=== PATIENT | female | born 1990 | race Caucasian/White ===

== ENCOUNTER 2022-07-19 08:46 | Emergency (ER) | payer OTHER ==
[2022-07-19 09:00] VITALS: BP 104/71; PULSE 115; RESP 18; TEMP 98.9; BMI 26.6
[2022-07-19] MEDS ORDERED: predniSONE 20 MG TABLET (UD) PO ONE (09:20)
[2022-07-19] MEDS ORDERED: diphenhydrAMINE HCL 25 MG CAPSULE (FP) PO ONE ×2 (09:20→09:24)
[2022-07-19] MEDS ORDERED: FAMOTIDINE 20 MG TABLET PO ONE (09:22)
[2022-07-19] MEDS ORDERED: FAMOTIDINE 20 MG TABLET ONE (09:24)
[2022-07-19] MEDS ORDERED: predniSONE 20 MG TABLET (UD) ONE (09:24)
[2022-07-19 11:52] LABS: THROAT:GRP A STREP DETECTED (NOTDETECTED)
== END 2022-07-19 11:15 | disposition home or self-care (01) ==
LOC: FER 08:46
DX: R21 Rash and other nonspecific skin eruption (principal); T78.40XA Allergy, unspecified, initial encounter; J02.0 Streptococcal pharyngitis; Z20.822 Contact with and (suspected) exposure to COVID-19
CPT/HCPCS: 0241U-QW; 87651; 99283-25

== ENCOUNTER 2022-12-08 14:03 | Emergency (ER) | payer OTHER ==
[2022-12-08 14:29] VITALS: BP 127/76; PULSE 87; RESP 18; TEMP 98.4; BMI 28.3
== END 2022-12-08 15:15 | disposition home or self-care (01) ==
LOC: FER 14:03
PROC: 3E0T3BZ Introduction of Anesthetic Agent into Peripheral Nerves and Plexi, Percutaneous Approach (ICD-10-PCS; principal; 2022-12-08)
DX: K08.89 Other specified disorders of teeth and supporting structures (principal)
CPT/HCPCS: 99282-25

== ENCOUNTER 2023-02-13 17:02 | Emergency (ER) | payer OTHER ==
[2023-02-13 17:13] VITALS: BP 111/65; PULSE 95; RESP 16; TEMP 97.4; BMI 30.2
== END 2023-02-13 18:46 | disposition home or self-care (01) ==
LOC: FER 17:02
DX: H92.03 Otalgia, bilateral (principal); R09.81 Nasal congestion; R05.9 Cough, unspecified
CPT/HCPCS: 99282-25

== ENCOUNTER 2023-12-17 22:12 | Emergency (ER) | payer OTHER ==
[2023-12-17 22:21] VITALS: BP 112/72; PULSE 78; RESP 16; TEMP 97.5; BMI 29.5
[2023-12-17] MEDS ORDERED: ONDANSETRON 4 MG/2 ML VIAL ONE (22:42)
[2023-12-17 22:46] LABS: HEMATOCRIT 39.7 % (32.4-45.2); HEMOGLOBIN 12.6 G/dL (10.7-15.3); MCH 28.5 pg (25.7-33.7); MCHC 31.8 g/dl (32.0-36.0); MEAN CELL VOLUME 89.6 fl (80-96); MEAN PLT VOLUME 7.9 fl (7.5-11.1); PLATELET COUNT 278.1 10^3/uL (134-434); RBC 4.43 10^6/uL (3.60-5.2); RDW 13.8 % (11.6-15.6); WHITE BLOOD COUNT 8.8 10^3/uL (4.0-10.8)
[2023-12-17] MEDS: SODIUM CHLORIDE 1,000 ML IV ONE (22:47)
[2023-12-17] MEDS: ONDANSETRON 4 MG/2 ML VIAL IVPUSH ONE (22:47)
[2023-12-17 23:11] LABS: ALBUMIN 4.6 g/dl (3.4-5.0); BILIRUBIN,TOTAL 0.4 mg/dl (0.2-1); CALCIUM 10.1 mg/dl (8.5-10.1); CREATININE 0.9 mg/dl (0.6-1.3); POTASSIUM 3.8 mmol/L (3.5-5.1); TOT PROT 7.7 g/dl (6.4-8.2)
[2023-12-17] MEDS ORDERED: MAGNESIUM CITRATE 300 ML BOTTLE ONE (23:18)
[2023-12-17] MEDS: MAGNESIUM CITRATE 300 ML BOTTLE PO ONE (23:27)
== END 2023-12-17 23:36 | disposition home or self-care (01) ==
LOC: FER 22:12
PROC: 3E033GC Introduction of Other Therapeutic Substance into Peripheral Vein, Percutaneous Approach (ICD-10-PCS; principal; 2023-12-17)
PROC: 3E0337Z Introduction of Electrolytic and Water Balance Substance into Peripheral Vein, Percutaneous Approach (ICD-10-PCS; 2023-12-17)
DX: K59.00 Constipation, unspecified (principal); R10.33 Periumbilical pain; R11.2 Nausea with vomiting, unspecified
CPT/HCPCS: 36415; 74019-TC-FY; 80053; 81003; 81015; 83690; 85027; 99284-25

== ENCOUNTER 2023-12-18 19:00 | Emergency (ER) | payer OTHER ==
[2023-12-18 19:30] VITALS: BMI 29.5
[2023-12-18] MEDS ORDERED: ACETAMINOPHEN INJECTION 100 ML ONE (19:36)
[2023-12-18] MEDS ORDERED: ONDANSETRON 4 MG/2 ML VIAL ONE (19:36)
[2023-12-18] MEDS: SODIUM CHLORIDE 0.9% 500 ML INFUS.BAG IV ONE (19:56)
[2023-12-18] MEDS: ONDANSETRON 4 MG/2 ML VIAL IVPUSH ONE (19:56)
[2023-12-18] MEDS: ACETAMINOPHEN 1000 MG/100 ML BAG IVPB ONE (19:56)
[2023-12-18 20:01] LABS: BASO % 0.6 % (0-2.0); EOS % 0.4 % (0-4.5); HEMOGLOBIN 13.2 GM/dL (10.7-15.3); LYMPH % 17.7 % (8-40); MCH 29.6 pg (25.7-33.7); MCHC 33.9 g/dl (32.0-36.0); MEAN CELL VOLUME 87.5 fl (80-96); MEAN PLT VOLUME 7.5 fl (7.5-11.1); MONO % 5.7 % (3.8-10.2); NEUT % 75.6 % (42.8-82.8); PLATELET COUNT 326 10^3/uL (134-434); RBC 4.45 M/mm3 (3.60-5.2); RDW 14.4 % (11.6-15.6); WHITE BLOOD COUNT 11.8 K/mm3 (4.0-10.0)
[2023-12-18 20:23] LABS: POTASSIUM 3.8 mmol/L (3.5-5.1)
[2023-12-18 20:25] LABS: CALCIUM 10.3 mg/dL (8.5-10.1)
[2023-12-18 20:26] LABS: ALBUMIN 4.6 g/dl (3.4-5.0); BLOOD UREA NITROGEN 16.8 mg/dL (7-18)
[2023-12-18 20:31] LABS: BILIRUBIN,TOTAL 0.7 mg/dL (0.2-1); TOT PROT 8.6 g/dl (6.4-8.2)
[2023-12-18 21:13] LABS: EPI CELLS >36 /uL (0-25.1); HYALINE CASTS 0 /uL (0-3.1); PH,URINE 8.5 (5.0-8.0); URINE APPEARANCE CLEAR; URINE BACTERIA 560 /uL (0-1359); URINE BILIRUBIN NEGATIVE (NEGATIVE); URINE COLOR YELLOW; URINE GLUCOSE (UA) NEGATIVE (NEGATIVE); URINE KETONE 2+ (NEGATIVE); URINE LEUK ESTERASE NEGATIVE (NEGATIVE); URINE NITRITE NEGATIVE (NEGATIVE); URINE PROTEIN NEGATIVE (NEGATIVE); URINE RBC 12 /uL (0-23.9); URINE UROBILINOGEN 0.2 mg/dL (0.2-1.0); URINE WBC 14 /uL (0-25.8)
[2023-12-18] MEDS ORDERED: KETOROLAC TROMETHAMINE 15 MG/ML VIAL ONE (22:52)
[2023-12-18] MEDS: KETOROLAC TROMETHAMINE 15 MG/ML VIAL IVPUSH ONE (23:25)
[2023-12-18 23:40] VITALS: BP 100/61; PULSE 71; RESP 16; TEMP 98.5
== END 2023-12-18 23:40 | disposition home or self-care (01) ==
LOC: JER 19:00
PROC: 3E033NZ Introduction of Analgesics, Hypnotics, Sedatives into Peripheral Vein, Percutaneous Approach (ICD-10-PCS; principal; 2023-12-18)
PROC: 3E0333Z Introduction of Anti-inflammatory into Peripheral Vein, Percutaneous Approach (ICD-10-PCS; 2023-12-18)
PROC: 3E033GC Introduction of Other Therapeutic Substance into Peripheral Vein, Percutaneous Approach (ICD-10-PCS; 2023-12-18)
DX: R10.84 Generalized abdominal pain (principal); R11.2 Nausea with vomiting, unspecified; R68.83 Chills (without fever); N83.209 Unspecified ovarian cyst, unspecified side
CPT/HCPCS: 36415; 74177-TC; 80053; 81003; 83690; 84703; 85025; 87077; 87086; 99285-25; J0131; Q9967

== ENCOUNTER 2023-12-20 16:46 | Emergency (ER) | payer OTHER ==
[2023-12-20 17:01] VITALS: BP 118/68; PULSE 89; RESP 18; TEMP 97.5; BMI 29.5
== END 2023-12-20 17:09 | disposition home or self-care (01) ==
LOC: FER 16:46
DX: U07.1 COVID-19 (principal); R50.9 Fever, unspecified; M79.10 Myalgia, unspecified site; J02.9 Acute pharyngitis, unspecified
CPT/HCPCS: 0241U-QW; 99283-25

== ENCOUNTER 2024-11-18 21:54 | Observation (INO) | payer OTHER ==
[2024-11-18] MEDS ORDERED: ONDANSETRON 4 MG/2 ML VIAL ONE (22:58)
[2024-11-18] MEDS: ONDANSETRON 4 MG/2 ML VIAL IVPB ONE (23:04)
[2024-11-18] MEDS: morphine CARPU-JECT 2 MG/1 ML DISP.SYRIN IVPUSH ONE (23:05)
[2024-11-18] MEDS: SODIUM CHLORIDE 1,000 ML IV ONE (23:06)
[2024-11-18 23:11] LABS: ABSOLUTE IMMATURE GRANULOCYTES 0.00 x10^3/uL (0.0-0.031); BASOPHILS # 0.02 x10^3/uL (0.01-0.08); EOSINOPHIL % 1.4 % (0.7-5.8); EOSINOPHILS # 0.10 x10^3/uL (0.04-0.36); MCHC 33.1 g/dl (32.2-35.5); MEAN CELL VOLUME 92.9 fl (79.4-94.8); MEAN PLT VOLUME 9.5 fl (9.4-12.3); MONOCYTE # 0.57 x10^3/uL (0.24-0.86); MONOCYTE % 8.1 % (4.7-12.5); RDW 13.1 % (12.1-16.8)
[2024-11-18 23:18] LABS: HCG,QUALITATIVE URINE Negative
[2024-11-18 23:29] LABS: ALK PHOS 44.0 U/L (45-117); CO2 25.0 mmol/L (21-32); CREATININE 0.7 mg/dl (0.6-1.3); GLUCOSE,RANDOM 87.0 mg/dl (74-106); SGOT/AST 14.0 U/L (15-37); SGPT/ALT 12.0 U/L (7-52); TOT PROT 7.1 g/dl (6.4-8.2)
[2024-11-19] MEDS: morphine CARPU-JECT 2 MG/1 ML DISP.SYRIN IVPUSH ONE ×2 (01:22→06:35)
[2024-11-19 07:04] VITALS: TEMP 98.2
[2024-11-19 09:07] VITALS: BMI 30.2
[2024-11-19] MEDS ORDERED: METOCLOPRAMIDE HCL INJECTION 10 MG/2 ML VIAL IVPUSH PRN (10:08)
[2024-11-19] MEDS ORDERED: ACETAMINOPHEN 1000 MG/100 ML BAG IVPB PRN (10:08)
[2024-11-19] MEDS: DOCUSATE SODIUM 100 MG CAPSULE (FP) PO SCH (10:45)
[2024-11-19] MEDS: POLYETHYLENE GLYCOL (HEALTHYLAX) 3350 17 GM PACKET PO SCH (10:45)
[2024-11-19 12:58] LABS: HCV DIAGNOSTIC IN-HOUSE W/RFLX NON-REACTIVE (NONREACTIVE); HIV INTERPRETATION NEGATIVE (NEGATIVE)
[2024-11-19 14:33] VITALS: BP 109/79; PULSE 74; RESP 18
== END 2024-11-19 16:22 | disposition home or self-care (01) ==
LOC: FER 21:54 → INTOOBSV 11-19 00:49 → FM/S 11-19 00:49 → UNDOADMOB 11-19 00:49 → FM/S 11-19 10:07 → UNDODISOB 11-19 11:19
DX: K58.9 Irritable bowel syndrome, unspecified (principal); K59.00 Constipation, unspecified; R10.11 Right upper quadrant pain; Z88.1 Allergy status to other antibiotic agents
CPT/HCPCS: 36415; 71045-TC-FY; 74019-TC-FY; 74177-TC; 80053; 81003; 83605; 83690; 83735; 84703; 85025; 86803; 87389; 96361; 96374; 96375; 96376; 99285-25; G0378